=== PATIENT | male | born 1995 | race Hispanic/Latino ===

== ENCOUNTER 2023-05-17 02:42 | Emergency (ER) | payer BC, SELFPAY ==
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
[2023-05-17 13:58] VITALS: BP 121/72; TEMP 98; O2SAT 99
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
== END 2023-05-17 04:43 | disposition home or self-care (01) ==
LOC: ER 02:42
DX: S02.2XXA Fracture of nasal bones, initial encounter for closed fracture (principal); S02.40DA Maxillary fracture, left side, initial encounter for closed fracture; S02.832A Fracture of medial orbital wall, left side, initial encounter for closed fracture; Y04.2XXA Assault by strike against or bumped into by another person, initial encounter
CPT/HCPCS: 70450; 70486; 72125; 76377; 99283